=== PATIENT | female | born 1960 | race African-American/Black ===

== ENCOUNTER 2022-05-28 07:10 | Emergency (ER) | payer OTHER ==
[~2022-05-28] VITALS: Ht 142.2 cm; Wt 49.0 kg
[2022-05-28 07:31] VITALS: BP 169/92
[2022-05-28] MEDS ORDERED: ACETAMINOPHEN 325MG TABLET PO ONE (10:00)
[2022-05-28 10:34] LABS: CLARITY URINE CLEAR (CLEAR); COLOR URINE YELLOW (YELLOW); KETONES URINE NEGATIVE (NEGATIVE); LEUKOCYTE ESTERASE URINE NEGATIVE (NEGATIVE); NITRITE URINE NEGATIVE (NEGATIVE); OCCULT BLOOD URINE TRACE (NEGATIVE); PH URINE 6.5 (4.5-8.0); PROTEIN URINE NEGATIVE (NEGATIVE)
[2022-05-28] MEDS ORDERED: LIDOCAINE 5% PATCH TOP SCH (11:00)
[2022-05-28] MEDS ORDERED: LIDO700A30 TP (12:46)
== END 2022-05-28 13:09 | disposition home or self-care (01) ==
LOC: ER 07:10
DX: R10.31 Right lower quadrant pain (principal); E11.9 Type 2 diabetes mellitus without complications; I10 Essential (primary) hypertension
CPT/HCPCS: 76770; 81003; 99284